=== PATIENT | female | born 1995 | race African-American/Black ===

== ENCOUNTER 2017-04-16 22:58 | Emergency (ER) | payer OTHER ==
[~2017-04-16] VITALS: Ht 167.6 cm; Wt 86.0 kg
[~2017-04-16 22:58] MED LIST: NAPR500 PO
[2017-04-16 23:00] VITALS: BP 127/76; PULSE 76; RESP 16; TEMP 98.8; O2SAT 100
--- NOTE | 2017-04-16 23:51 | PD ---
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 Patient reports that she had sexual intercourse with her boyfriend for the first time 2 days ago. Yesterday she states that her boyfriend developed clearish penile discharge as well as dysuria. The patient denies any symptoms. She denies vaginal bleeding or discharge. No pelvic or abdominal pain. History Past Medical Histgory Medical History: Denies Significant Hx Past Surgical History Surgical History: No Previous Surgery Social History Alcohol Use: Yes (RARE) Tobacco Use: No Allergies-Medications (Allergen,Severity, Reaction): Coded Allergies: No Known Allergies (Unverified , 04/16/17) Reported Meds & Prescriptions Reported Meds & Active Scripts Active Review of Systems Except as stated in HPI: all other systems reviewed are Neg Physical Exam Narrative GENERAL: Well-developed, well-nourished, sitting comfortably, no apparent distress. SKIN: Focused skin assessment warm/dry. HEAD: Atraumatic. Normocephalic. EYES: Pupils equal and round. No scleral icterus. No injection or drainage. ENT: Mucous membranes pink and moist. CARDIOVASCULAR: Regular rate and rhythm. GASTROINTESTINAL: Abdomen soft, non-tender, nondistended. MUSCULOSKELETAL: No obvious deformities. No clubbing. No cyanosis. No edema. NEUROLOGICAL: Awake and alert. No obvious cranial nerve deficits. Motor grossly within normal limits. Normal speech. PSYCHIATRIC: Appropriate mood and affect; insight and judgment normal. Data Data Last Documented VS Vital Signs Date Time Temp Pulse Resp B/P Pulse Ox O2 Delivery O2 Flow Rate FiO2 04/16/17 23:00 98.8 76 16 127/76 100 MDM Medical Screen Exam Complete: Yes Emergency Medical Condition: Yes Differential Diagnosis Possible STD exposure Narrative Course This is a 22-year-old female who requested to be tested for STDs because she had sexual intercourse with her boyfriend 2 days ago for the first time, and yesterday he developed clear penile discharge and dysuria. She has no symptoms. No vaginal bleeding or discharge. No pelvic or abdominal pain. On physical exam the patient's abdominal exam is completely benign. I had a long discussion with the patient regarding possible workup. It was concluded to contact the financial counselor and to make this visit an EM no so the patient can follow-up with the [facility] with her boyfriend so they can both be tested and treated if needed. Primary Impression: Encounter for medical screening examination Referrals: [facility] 3 days [facility] 3 days Additional Instructions: Follow-up in the [facility] this week. Return to the emergency department for worsening symptoms or any other concerns. Disposition: 01 DISCHARGE HOME Condition: Stable Dain Lopez MD Apr 16, 2017 23:51
== END 2017-04-17 00:10 | disposition left against medical advice (07) ==
LOC: NEPD 22:58
DX: Z04.8 Encounter for examination and observation for other specified reasons (principal); Z72.51 High risk heterosexual behavior
CPT/HCPCS: 99281

== ENCOUNTER 2017-06-22 11:31 | Emergency (ER) | payer OTHER ==
[2017-06-22 11:32] VITALS: BP 126/78; PULSE 78; RESP 15; TEMP 98.2; O2SAT 99
--- NOTE | 2017-06-22 11:44 | PD ---
Physical Exam Date Seen by Provider: Jun 22, 2017 Time Seen by Provider: 11:42 Narrative 22-year-old Afro-[place] female presents to the emergency department with vaginal discomfort and discharge for the past 3 days. Denies dysuria. Last menstrual period one week ago. No fever or flank pain. Patient also feels she may have a Bartholin's gland cyst. [facility] but can't get an appointment until July 13. She has no known drug allergies. Data Data Last Documented VS Vital Signs Date Time Temp Pulse Resp B/P (MAP) Pulse Ox O2 Delivery O2 Flow Rate FiO2 06/22/17 11:32 98.2 78 15 126/78 (94) 99 MDM Medical Record Reviewed: Yes Supervised Visit with CRISTÓBAL: Yes Narrative Course Patient is medically stable. Vital signs are stable. Patient awaiting med bed placement. Condition: Stable Bryce Gee Jun 22, 2017 11:44
[2017-06-22 14:16] LABS: BLOOD, URINE NEG (NEG); GLUCOSE,URINE NEG (NEG); KETONE, URINE NEG (NEG); MUCUS URINE FEW /lpf (OCC); NITRITE,URINE NEG (NEG); PH, URINE 5.5 (5.0-8.5); SQUAMOUS EPITHELIAL CELL URINE 1 /hpf (0-5); URINE COLOR YELLOW (YELLW/STRAW)
[2017-06-22 14:17] LABS: COMMENT (UR) CULT NOT INDICATED; CULTURE IF INDICATED CULT NOT INDICATED
--- NOTE | 2017-06-22 14:28 | PD ---
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 Denies dysuria. Last menstrual period one week ago. No fever or flank pain. Patient also feels she may have a Bartholin's gland cyst. Denies pain at the site of the Bartholin's cyst. Patient was referred to the [facility] but can't get an appointment until July 13. She has no known drug allergies. Patient is reporting concern of STD. [facility] Past Medical History Medical History: Denies Significant Hx ?: Not LMP: 06/15/17 Past Surgical History Surgical History: No Previous Surgery Social History Alcohol Use: Yes (RARE) Tobacco Use: No Substance Use: No Allergies-Medications (Allergen,Severity, Reaction): Coded Allergies: No Known Allergies (Unverified , 06/22/17) Reported Meds & Prescriptions Reported Meds & Active Scripts Active Review of Systems Except as stated in HPI: all other systems reviewed are Neg General / Constitutional: No: Fever Eyes: No: Visual changes HENT: No: Headaches Cardiovascular: No: Chest Pain or Discomfort Respiratory: No: Shortness of Breath Gastrointestinal: No: Abdominal Pain Genitourinary: No: Dysuria Physical Exam Narrative GENERAL: alert well appearing female in no acute distress SKIN: Warm and dry. HEAD: Normocephalic. EYES: No scleral icterus. No injection or drainage. NECK: Supple, trachea midline. No JVD or lymphadenopathy. CARDIOVASCULAR: Regular rate and rhythm without murmurs, gallops, or rubs. RESPIRATORY: Breath sounds equal bilaterally. No accessory muscle use. GASTROINTESTINAL: Abdomen soft, non-tender, nondistended. . normal appearing external genitalia without lesions. mildly enlarged left bartholin's gland which is nontender. moderate amount of white discharge in the vaginal vault. friable cervix. No CMT. No adenexal mass or tenderness. Data Data Last Documented VS Vital Signs Date Time Temp Pulse Resp B/P (MAP) Pulse Ox O2 Delivery O2 Flow Rate FiO2 06/22/17 13:29 06/22/17 11:32 98.2 78 15 99 Orders Orders Gc And Chlamydia Pcr (06/22/17 13:30) Wet Prep Profile (06/22/17 13:30) Urinalysis - C+S If Indicated (06/22/17 13:30) Ed Urine Pregnancytest Poc (06/22/17 13:30) Labs Laboratory Tests Test 06/22/17 13:40 Urine Color YELLOW Urine Turbidity CLEAR Urine pH 5.5 Urine Specific Wenden 1.022 Urine Protein NEG mg/dL Urine Glucose (UA) NEG mg/dL Urine Ketones NEG mg/dL Urine Occult Blood NEG Urine Nitrite NEG Urine Bilirubin NEG Urine Urobilinogen LESS THAN 2.0 MG/DL Urine Leukocyte Esterase TRACE Urine RBC 1 /hpf Urine WBC LESS THAN 1 /hpf Urine Squamous Epithelial Cells 1 /hpf Urine Mucus FEW /lpf Microscopic Urinalysis Comment CULT NOT INDICATED Clue Cells (Wet Prep) NONE SEEN Vaginal Trichomonas (Wet Prep) NONE SEEN Vaginal Yeast (Wet Prep) PRESENT MDM Medical Decision Making Medical Screen Exam Complete: Yes Emergency Medical Condition: Yes Differential Diagnosis VAGINITIS, CERVICITIS, PID, UTI Narrative Course 22 YEAR OLD FEMALE WITH VAGINAL IRRITATION X 3 DAYS. CONCERN OF STD. DENIES FEVER/CHILLS, ABD PAIN, N/V. ON EXAM PATIENT IS WELL APPEARING, HER ABD IS SOFT & NON-TENDER. SHE HAS A FRIABLE CERVIX & DISCHARGE CONSISTENT WUITH VAGINAL YEAST. UA: No infection URINE PREG: Negative WET PREP: + YEAST, negative clue cells, negative Trich. Patient will be treated empirically for cervicitis & vaginal yeast. Diagnosis Primary Impression: Cervicitis Additional Impression: Vaginal yeast infection Referrals: [employer] Patient Instructions: General Instructions Departure Forms: Tests/Procedures Additional Instructions: Take the medication as prescribed. follow up with your doctor return if you develop new or worsening symptoms Scripts Fluconazole (Diflucan) 150 Mg Tab 150 MG PO ONCE for Infection, #1 TAB 0 Refills Prov: Kalpana Waters 06/22/17 Disposition: 01 DISCHARGE HOME Condition: Stable Kalpana Waters Jun 22, 2017 14:28
[2017-06-22] MEDS ORDERED: DIFL150T PO (14:46)
[2017-06-22] MEDS ORDERED: cefTRIAXone 250 MG VIAL IM ONE (15:00)
[2017-06-22] MEDS ORDERED: AZITHROMYCIN PWD FOR SUSP 1 GM PACKET PO ONE (15:00)
[2017-06-22] MEDS ORDERED: LIDOCAINE HCL 1% 50 ML VIAL IM ONE (15:00)
[2017-06-22 17:49] LABS: CHLAMYDIA PCR NOT DETECTED (NOT DETECT); NEISSERIA PCR NOT DETECTED (NOT DETECT)
== END 2017-06-22 15:42 | disposition home or self-care (01) ==
LOC: NEPD 11:31
DX: N72 Inflammatory disease of cervix uteri (principal); N76.0 Acute vaginitis
CPT/HCPCS: 81001; 84703; 87210; 87491; 87591; 96372; 99284; J0696

== ENCOUNTER 2017-07-12 20:37 | Emergency (ER) | payer OTHER ==
[~2017-07-12 20:37] MED LIST changes: +DIFL150T PO; -NAPR500 PO
[2017-07-12 20:38] VITALS: BP 134/79; PULSE 84; RESP 16; TEMP 98.7; O2SAT 99
[2017-07-13] MEDS ORDERED: SPRI28TA PO (10:58)
--- NOTE | 2017-08-03 22:15 | PD ---
HPI Chief Complaint: Skin Problem Time Seen by Provider: 20:59 Travel History International Travel<30 days: No Contact w/Intl Traveler<30days: No Traveled to known affect area: No History of Present Illness HPI Patient presents to [facility] for evaluation of a rash that she gets frequently to presents itself in a linear pattern over her trunk and extremities. She is uncertain what causes this. She denies any fever or chills. No new contacts. No difficulty breathing or sensation of oral swelling. She has no other symptoms to report. [facility] Past Medical History Medical History: Denies Significant Hx Social History Alcohol Use: Yes (RARE) Tobacco Use: No Substance Use: No Allergies-Medications (Allergen,Severity, Reaction): Coded Allergies: No Known Allergies (Unverified Adverse Reaction, Unknown, 07/14/17) Reported Meds & Prescriptions Reported Meds & Active Scripts Active Sprintec 28 (Norgestimate-Ethinyl Estradiol) 0.25-35 mg-Mcg Tab 1 Tab PO DAILY Review of Systems Except as stated in HPI: all other systems reviewed are Neg Physical Exam Narrative GENERAL: Well developed female patient, ambulatory no acute distress SKIN: Warm and dry. Multiple raised linear erythematous lines on the extremities. No pustular vesicle formation. HEAD: Normocephalic. EYES: No scleral icterus. No injection or drainage. NECK: , trachea midline. No stridor CARDIOVASCULAR: Regular rate RESPIRATORY: No accessory muscle use. GASTROINTESTINAL: AbdomeN nondistended. MUSCULOSKELETAL: No cyanosis, or edema. BACK: without obvious deformity. MDM Medical Decision Making Medical Screen Exam Complete: Yes Emergency Medical Condition: Yes Medical Record Reviewed: Yes Differential Diagnosis Contact dermatitis versus urticaria versus allergic reaction Narrative Course 22-year-old female presents emergency department for evaluation of a rash. Patient appears without distress. Her vital signs are stable. At this moment there is no indication for lab workup. She will be placed a medical bed once one becomes available for further evaluation and disposition AMA: The risks of leaving against medical advice without further evaluation treatment were discussed with the patient. These risks include cardiac dysfunction, cardiac dysrhythmia, possible heart attack, possible stroke or . The patient indicated understanding of these risks and appeared to have the capacity to make this decision. Diagnosis Primary Impression: Rash Disposition: 07 AGAINST MEDICAL ADVICE Condition: Stable HughDaina PARMAR Aug 03, 2017 22:15
== END 2017-07-12 22:00 | disposition left against medical advice (07) ==
LOC: NEPK 20:37
DX: R21 Rash and other nonspecific skin eruption (principal)
CPT/HCPCS: 99281

== ENCOUNTER 2017-08-09 10:46 | Emergency (ER) | payer OTHER ==
[~2017-08-09] VITALS: Ht 167.6 cm; Wt 90.0 kg
[~2017-08-09 10:46] MED LIST changes: -DIFL150T PO; +SPRI28TA PO
[2017-08-09 10:47] VITALS: BP 138/80; PULSE 60; RESP 16; TEMP 98.5; O2SAT 100
--- NOTE | 2017-08-09 11:13 | PD ---
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 Patient denies odor or pain. States she believes this is a yeast infection. Patient denies douching, foreign objects insertion. States she started new oral contraceptives about 1 month ago. Last menstrual period July 14. Denies chronic issues or infections. PFSH Past Medical History ?: Unknown LMP: 07/14/17 Social History Alcohol Use: Yes (RARE) Tobacco Use: No Substance Use: No Allergies-Medications (Allergen,Severity, Reaction): Coded Allergies: No Known Allergies (Unverified Adverse Reaction, Unknown, 08/09/17) Reported Meds & Prescriptions Reported Meds & Active Scripts Active Fluconazole 150 Mg Tab 150 Mg PO ONCE Take 1 tab once. If symptoms persist or worsen, may take another in 5-7 days. Sprintec 28 (Norgestimate-Ethinyl Estradiol) 0.25-35 mg-Mcg Tab 1 Tab PO DAILY Review of Systems Except as stated in HPI: all other systems reviewed are Neg Physical Exam Narrative GENERAL: Well-developed well-nourished in no apparent distress SKIN: Focused skin assessment warm/dry. HEAD: Atraumatic. Normocephalic. EYES: Pupils equal and round. No scleral icterus. No injection or drainage. ENT: No nasal bleeding or discharge. Mucous membranes pink and moist. NECK: Trachea midline. No JVD. CARDIOVASCULAR: Regular rate and rhythm. No murmur appreciated. RESPIRATORY: No accessory muscle use. Clear to auscultation. Breath sounds equal bilaterally. GASTROINTESTINAL: Abdomen soft, non-tender, nondistended. Hepatic and splenic margins not palpable. GENITOURINARY: No lesions or rashes on external genitalia. White cottage cheese -like discharge without odor. No other discharge. cervical os closed. no CMT. MUSCULOSKELETAL: No obvious deformities. No clubbing. No cyanosis. No edema. NEUROLOGICAL: Awake and alert. No obvious cranial nerve deficits. Motor grossly within normal limits. Normal speech. PSYCHIATRIC: Appropriate mood and affect; insight and judgment normal. Data Data Last Documented VS Vital Signs Date Time Temp Pulse Resp B/P (MAP) Pulse Ox O2 Delivery O2 Flow Rate FiO2 08/09/17 10:47 98.5 60 16 138/80 (99) 100 Orders Orders Wet Prep Profile (08/09/17 11:27) Ed Discharge Order (08/09/17 11:32) Gc And Chlamydia Pcr (08/09/17 11:32) MDM Medical Decision Making Medical Screen Exam Complete: Yes Emergency Medical Condition: Yes Differential Diagnosis vaginal yeast infection, chlamydia, gonorrhea, cystitis Narrative Course 22-year-old female presents to emergency department complaining of a white vaginal discharge and and itching. Patient denies odor or pain. States she believes this is a yeast infection. Patient denies douching, foreign objects insertion. States she started new oral contraceptives about 1 month ago. Last menstrual period July 14. Denies chronic issues or infections. Vital signs stable Physical exam consistent with a vaginal yeast infection without evidence of other infectious process. Cultures sent to lab. Fluconazole 150 mg 1. May refill in 5-7 days if worse. Advised patient to return to primary care physician in 2-3 days for follow-up. Return to the emergency department for worsening symptoms Diagnosis Primary Impression: Vaginal candidiasis Referrals: [facility] Additional Instructions: Follow-up with a primary care physician within 2-3 days. Take all medications as prescribed. If her symptoms persist or worsen return to the emergency department. Scripts Fluconazole (Fluconazole) 150 Mg Tab 150 MG PO ONCE for Infection, #1 TAB 1 Refill Take 1 tab once. If symptoms persist or worsen, may take another in 5-7 days. Prov: Kenyatta Owen DO 08/09/17 Disposition: 01 DISCHARGE HOME Condition: Stable Prerna Ayala Aug 09, 2017 11:13
[2017-08-09] MEDS ORDERED: FLUC150T PO (11:31)
[2017-08-09 16:29] LABS: CHLAMYDIA PCR NOT DETECTED (NOT DETECT); NEISSERIA PCR NOT DETECTED (NOT DETECT)
== END 2017-08-09 11:51 | disposition home or self-care (01) ==
LOC: NEPD 10:46
DX: B37.3 Candidiasis of vulva and vagina (principal)
CPT/HCPCS: 87210; 87491; 87591; 99283

== ENCOUNTER 2017-10-16 16:34 | Emergency (ER) | payer OTHER ==
[~2017-10-16] VITALS: Ht 167.6 cm; Wt 80.0 kg
[~2017-10-16 16:34] MED LIST changes: +FLUC150T PO
[2017-10-16 16:42] VITALS: BP 138/86; PULSE 79; RESP 16; TEMP 98.6; O2SAT 98
[2017-10-16] MEDS ORDERED: DIFL150T PO (17:46)
--- NOTE | 2017-10-16 17:47 | PD ---
HPI Chief Complaint: Rn Charge Problem/Complaint Time Seen by Provider: 17:36 Travel History International Travel<30 days: No Contact w/Intl Traveler<30days: No Traveled to known affect area: No History of Present Illness HPI 22-year-old female complains of vaginal discharge and itching. Patient has history of recurrent yeast infection in the past. Patient was seen in emergency room 2 times in the past and STD check including GC and chlamydia PCR was negative. Patient denies any abdominal pain or pelvic pain. Patient denies any dysuria or frequency. Patient denies any vaginal bleeding. Patient denies any chance of being . PFSH Past Medical History ?: Not LMP: 10/04/17 Social History Alcohol Use: Yes (RARE) Tobacco Use: No Substance Use: No Allergies-Medications (Allergen,Severity, Reaction): Coded Allergies: No Known Allergies (Unverified Adverse Reaction, Unknown, 08/09/17) Reported Meds & Prescriptions Reported Meds & Active Scripts Active Fluconazole 150 Mg Tab 150 Mg PO ONCE Take 1 tab once. If symptoms persist or worsen, may take another in 5-7 days. Sprintec 28 (Norgestimate-Ethinyl Estradiol) 0.25-35 mg-Mcg Tab 1 Tab PO DAILY Review of Systems General / Constitutional: No: Fever Eyes: No: Visual changes HENT: No: Headaches Cardiovascular: No: Chest Pain or Discomfort Respiratory: No: Shortness of Breath Gastrointestinal: No: Abdominal Pain Genitourinary: Positive: Discharge, No: Dysuria Musculoskeletal: No: Pain Skin: No Rash Neurologic: No: Weakness Psychiatric: No: Depression Endocrine: No: Polydipsia Hematologic/Lymphatic: No: Easy Bruising Physical Exam Narrative GENERAL: Well-nourished, well-developed patient. SKIN: Focused skin assessment warm/dry. HEAD: Normocephalic. EYES: No scleral icterus. No injection or drainage. NECK: Supple, trachea midline. No JVD or lymphadenopathy. CARDIOVASCULAR: Regular rate and rhythm without murmurs, gallops, or rubs. RESPIRATORY: Breath sounds equal bilaterally. No accessory muscle use. GASTROINTESTINAL: Abdomen soft, non-tender, nondistended. MUSCULOSKELETAL: No cyanosis, or edema. BACK: Nontender without obvious deformity. No CVA tenderness. 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 Data Data Last Documented VS Vital Signs Date Time Temp Pulse Resp B/P (MAP) Pulse Ox O2 Delivery O2 Flow Rate FiO2 10/16/17 16:42 98.6 79 16 138/86 (103) 98 MDM Medical Decision Making Medical Screen Exam Complete: Yes Emergency Medical Condition: Yes Differential Diagnosis Differential diagnosis including Stefanie vaginitis, bacterial vaginosis, GC and Chlamydia infection. Narrative Course 22-year-old female complains of vaginal discharge. History of recurrent yeast infection. Diagnosis Primary Impression: Stefanie vaginitis Patient Instructions: General Instructions Additional Instructions: Diflucan as directed. Follow-up with local physician. Return if persistent problem or worse. Med/Other Pt SpecificInfo: Prescription(s) given Scripts Fluconazole (Diflucan) 150 Mg Tab 150 MG PO ONCE for Infection, #1 TAB 2 Refills Prov: Yong Snow MD 10/16/17 Disposition: 01 DISCHARGE HOME Condition: Stable Yong Snow MD Oct 16, 2017 17:46
== END 2017-10-16 18:05 | disposition home or self-care (01) ==
LOC: NEPD 16:34
DX: B37.3 Candidiasis of vulva and vagina (principal); Z79.899 Other long term (current) drug therapy
CPT/HCPCS: 99283